=== PATIENT | male | born 1955 | race Caucasian/White ===

== ENCOUNTER 2017-06-30 10:20 | Emergency (ER) | payer SELFPAY ==
[~2017-06-30] VITALS: Ht 172.7 cm; Wt 70.0 kg
[2017-06-30 10:27] VITALS: BP 144/74; PULSE 69; RESP 12; TEMP 98.6; O2SAT 100
[2017-06-30 10:47] VITALS: BP 168/82; PULSE 60; RESP 15; TEMP 97.6; O2SAT 99
[2017-06-30] MEDS ORDERED: TETANUS/DIPHTHERIA TOXOID ADULT 0.5 ML VIAL IM ONE (11:15)
[2017-06-30] MEDS ORDERED: CEPHALEXIN MONOHYDRATE 500 MG CAP PO ONE (11:15)
[2017-06-30] MEDS ORDERED: SULFAMETHOXAZOLE-TRIMETHOPRIM DS 800-160 MG TAB PO ONE (11:15)
[2017-06-30] MEDS ORDERED: BACT800T5 PO (11:25)
[2017-06-30] MEDS ORDERED: CEPH-460 PO (11:25)
--- NOTE | 2017-06-30 11:30 | PD ---
HPI Chief Complaint: Injury Time Seen by Provider: 11:24 Travel History International Travel<30 days: No Contact w/Intl Traveler<30days: No Traveled to known affect area: No History of Present Illness HPI This is a 62-year-old male who presents for evaluation of painful skin lesions on the feet and ankles. He is currently Homeless. One month ago he was walking in the rain and his shoes got very wet and he developed blisters on his feet and ankles. He has been attempting to keep them clean but they have developed scabs and have persistently been sore. He has switched to less irritating shoes but he comes in today for evaluation. He has had no fevers or chills. Symptoms are mild, aggravated by skin irritation. Last tetanus vaccination unknown. No other complaints. PFSH Past Medical History Medical History: Denies Significant Hx Tetanus Vaccination: Unknown Influenza Vaccination: No Past Surgical History Surgical History: No Previous Surgery Social History Alcohol Use: No Tobacco Use: No Substance Use: No Allergies-Medications (Allergen,Severity, Reaction): Coded Allergies: No Known Allergies (Unverified , 06/30/17) Reported Meds & Prescriptions Reported Meds & Active Scripts Active Keflex (Cephalexin) 500 Mg Capsule 500 Mg PO Q6H 10 Days Bactrim DS (Sulfamethoxazole-Trimethoprim) 800-160 Mg Tab 1 Tab PO BID Review of Systems Except as stated in HPI: all other systems reviewed are Neg Physical Exam Narrative GENERAL: Well-developed well-nourished male in no acute distress answering questions properly. SKIN: Warm and dry. The patient has several scabbed lesions on the feet and lower ankles. No significant erythematous changes noted. No induration or edema. There is little bit of serous/purulent drainage from some of the skin lesions. A wound culture was performed. HEAD: Atraumatic. Normocephalic. EYES: Pupils equal and round. No scleral icterus. No injection or drainage. ENT: No nasal bleeding or discharge. Mucous membranes pink and moist. NECK: Trachea midline. No JVD. CARDIOVASCULAR: Regular rate and rhythm. No murmur appreciated. RESPIRATORY: No accessory muscle use. Clear to auscultation. Breath sounds equal bilaterally. GASTROINTESTINAL: Abdomen soft, non-tender, nondistended. MUSCULOSKELETAL: No obvious deformities. No clubbing. No cyanosis. No edema. NEUROLOGICAL: Awake and alert. No obvious cranial nerve deficits. Motor grossly within normal limits. Normal speech. PSYCHIATRIC: Appropriate mood and affect; insight and judgment normal. Data Data Last Documented VS Vital Signs Date Time Temp Pulse Resp B/P (MAP) Pulse Ox O2 Delivery O2 Flow Rate FiO2 06/30/17 10:47 97.6 60 15 168/82 (110) 99 Room Air Orders Orders Wound Culture And Gram Stain (06/30/17 11:11) Sulfamet-Trimeth Ds 800-160 Mg (Bactrim (06/30/17 11:15) Cephalexin (Keflex) (06/30/17 11:15) Tetanus/Diphtheria Tox Adult (Tetanus/Di (06/30/17 11:15) Wound Care (06/30/17 11:11) MDM Medical Decision Making Medical Screen Exam Complete: Yes Emergency Medical Condition: Yes Medical Record Reviewed: Yes Differential Diagnosis Impetigo, scabs, friction blisters, cellulitis, abscess, erysipelas, necrotizing fasciitis, osteomyelitis Narrative Course Physical examination is consistent with scabbed blisters, some impetigo changes , on the feet and ankle secondary to developing blisters one month ago. Wound culture was performed. Tetanus status updated. Local wound care provided. The patient is being discharged with Bactrim and Keflex to take orally. Discussed signs and symptoms that would warrant return to the emergency room. He is stable for discharge. Diagnosis Primary Impression: Impetigo Additional Impression: Scab Additional Instructions: Wash the wounds gently with soap and water and apply antibiotic cream daily. Avoid picking at the skin. Avoid friction irritation of the skin. Take the antibiotics as prescribed. Return for new or worsening symptoms. Med/Other Pt SpecificInfo: Prescription(s) given Scripts Cephalexin (Keflex) 500 Mg Capsule 500 MG PO Q6H for Infection for 10 Days, #40 CAP 0 Refills Prov: Mahin Conde MD 06/30/17 Sulfamethoxazole-Trimethoprim (Bactrim DS) 800-160 Mg Tab 1 TAB PO BID for Infection, #20 TAB 0 Refills Prov: Mahin Conde MD 06/30/17 Disposition: 01 DISCHARGE HOME Condition: Stable Theodore Villarreal Jun 30, 2017 11:30
== END 2017-06-30 12:40 | disposition home or self-care (01) ==
LOC: NEPE 10:20
DX: L01.00 Impetigo, unspecified (principal); R23.4 Changes in skin texture; A49.01 Methicillin susceptible Staphylococcus aureus infection, unspecified site; Z59.0 Homelessness; Z23 Encounter for immunization
CPT/HCPCS: 86403; 87070; 87077; 87186; 87205; 90471; 90714